=== PATIENT | female | born 1945 | race Hispanic/Latino ===

== ENCOUNTER 2020-05-12 12:52 | Emergency (ER) | payer BC, MEDICARE ==
[2020-05-12] MEDS ORDERED: SODIUM CHLORIDE 0.9% 1000 ML 1,000 ML IV ONE (14:12)
--- NOTE | 2020-05-12 14:28 | Emergency Department Report ---
ED Syncope HPI - General Chief Complaint: Syncope Stated Complaint: PASSED OUT Time Seen by Provider: 05/12/20 13:23 - History of Present Illness Initial Comments: 74-year-old female presents to ED following syncopal episode at her eye doctor's office. Patient states she was recently switched from atenolol to labetalol 3 days ago by her project drilling engineer because her blood pressure was not controlled. Patient states since starting the medication, she has been feeling dizzy and lightheaded. Patient reports that it is written for her to take the medication twice daily, however she is only been taking it once a day because when she checks her blood pressure, systolic BP has been in the 100s over 110s. Today while at the doctor's office, patient remembers feeling nauseated, lightheaded, and then awoke. Paramedics taking care of her. Patient denies any chest pain, shortness of breath. Patient states she was in a chair when she passed out, did not fall or hit her head. Timing/Prior Episodes: single episode today Precipitating Factors: Positive: lightheadedness, nausea Context: sitting Loss of Consciousness: prolonged (minutes) Current Symptoms: back to normal, headache. denies: chest pain, dizziness, lightheadedness - Related Data Allergies/Adverse Reactions: Allergies doxycycline Allergy (Verified 05/12/20 13:26) Swelling Sulfa (Sulfonamide Antibiotics) Allergy (Verified 05/12/20 13:26) Anaphylaxis acetaminophen [From Vicodin] Adverse Reaction (Verified 02/03/14 16:41) jittery amlodipine Adverse Reaction (Verified 05/12/20 13:26) Unknown aspirin [From Percodan] Adverse Reaction (Verified 02/03/14 16:42) jittery azithromycin Adverse Reaction (Verified 05/12/20 13:26) Unknown hydrocodone bitartrate [From Vicodin] Adverse Reaction (Verified 02/03/14 16:41) jittery lidocaine Adverse Reaction (Verified 05/12/20 13:26) Unknown oxycodone HCl [From Percocet] Adverse Reaction (Verified 02/03/14 16:41) jittery oxycodone terephthalate [From Percodan] Adverse Reaction (Verified 02/03/14 16:42) jittery Penicillins Adverse Reaction (Verified 02/03/14 16:41) Swelling prednisone Adverse Reaction (Verified 05/12/20 13:26) Unknown tramadol Adverse Reaction (Verified 02/03/14 16:41) jittery trazodone Adverse Reaction (Verified 05/12/20 13:26) Headache Home Medications: Ambulatory Orders atenoloL [Tenormin] 50 mg PO DAILY 02/03/14 Aspirin EC [Halfprin EC] 81 mg PO QDAY #30 tablet. 02/04/14 Famotidine [Pepcid] 40 mg PO QHS #30 tablet 02/04/14 ED Review of Systems ROS: Stated complaint: PASSED OUT Other details as noted in HPI Comment: All other systems reviewed and negative Respiratory: denies: shortness of breath Cardiovascular: denies: chest pain Gastrointestinal: nausea Neurological: headache ED Past Medical Hx - Past Medical History Previous Medical History?: Yes Hx Hypertension: Yes - Surgical History Past Surgical History?: Yes Hx Cholecystectomy: Yes Additional Surgical History: hysterectomy, Cataract surgery to both eyes - Social History Smoking Status: Never Smoker Substance Use Type: None - Medications Home Medications: Home Medications Medication Instructions Recorded Confirmed Last Taken Type atenoloL [Tenormin] 50 mg PO DAILY 02/03/14 02/03/14 02/03/14 08:00 History 50 mg Aspirin EC [Halfprin EC] 81 mg PO QDAY #30 tablet. 02/04/14 Unknown Rx Famotidine [Pepcid] 40 mg PO QHS #30 tablet 02/04/14 Unknown Rx ED Physical Exam - General Limitations: No Limitations General appearance: alert, in no apparent distress - Head Head exam: Present: atraumatic, normocephalic - Eye Eye exam: Present: normal appearance, EOMI - ENT ENT exam: Present: mucous membranes moist - Neck Neck exam: Present: normal inspection - Respiratory Respiratory exam: Present: normal lung sounds bilaterally. Absent: respiratory distress - Cardiovascular Cardiovascular Exam: Present: regular rate, normal rhythm - GI/Abdominal GI/Abdominal exam: Present: soft. Absent: distended, tenderness - Extremities Exam Extremities exam: Present: normal inspection - Neurological Exam Neurological exam: Present: alert, oriented X3, CN II-XII intact. Absent: motor sensory deficit - Psychiatric Psychiatric exam: Present: normal affect, normal mood - Skin Skin exam: Present: warm, dry, intact, normal color ED Course Vital Signs 05/12/20 05/12/20 05/12/20 13:10 13:15 13:18 Temperature 98.6 F Pulse Rate 76 84 Respiratory 16 Rate Blood Pressure 140/72 O2 Sat by Pulse Oximetry 05/12/20 05/12/20 05/12/20 13:30 13:45 14:00 Temperature Pulse Rate 86 85 Respiratory 15 14 17 Rate Blood Pressure 130/75 130/79 132/76 O2 Sat by Pulse 96 97 97 Oximetry 05/12/20 05/12/20 05/12/20 14:15 14:30 14:46 Temperature Pulse Rate 85 96 H Respiratory 17 15 12 Rate Blood Pressure 131/70 131/70 131/70 O2 Sat by Pulse 96 97 Oximetry 05/12/20 05/12/20 05/12/20 15:00 15:16 15:30 Temperature Pulse Rate Respiratory 18 14 16 Rate Blood Pressure 131/70 114/70 144/75 O2 Sat by Pulse 97 96 Oximetry 05/12/20 05/12/20 05/12/20 16:00 16:30 17:00 Temperature Pulse Rate Respiratory 13 16 16 Rate Blood Pressure 124/74 142/76 123/69 O2 Sat by Pulse 98 96 Oximetry 05/12/20 05/12/20 17:30 18:02 Temperature Pulse Rate Respiratory 12 Rate Blood Pressure 123/69 164/75 O2 Sat by Pulse Oximetry - Consultations Consultation #1: 05/12/20 15:[address] Gonzalez with [facility]. States since labs normal and patient orthostatic, patient should be given IV fluids here in the ED, advise pt to discontinue her labetalol, and have patient follow-up in office. Patient does not require admission at this time. ED Medical Decision Making - Lab Data Result diagrams: 05/12/20 14:36 05/12/20 14:36 - EKG Data -: EKG Interpreted by Ut EKG shows normal: sinus rhythm, axis, intervals, QRS complexes, ST-T waves Rate: normal - EKG Data Interpretation: no acute changes - Radiology Data Radiology results: report reviewed, image reviewed - Medical Decision Making 74-year-old female presents to ED with syncope likely secondary to orthostatic hypotension from new blood pressure medication. Patient had orthostatic vitals here in ED. IV fluids were given. Work-up unremarkable, with negative troponin, EKG showing no ST changes or other abnormalities. Chest x-ray normal. Patient feeling better following IV fluid administration. Will discharge home at this time. Patient advised to discontinue her labetalol until further instructed by her project drilling engineer. Return precautions given. - Differential Diagnosis Orthostatic syncope, medication side effect, arrhythmia, dehydration Critical care attestation.: If time is entered above; I have spent that time in minutes in the direct care of this critically ill patient, excluding procedure time. ED Disposition Clinical Impression: Orthostatic hypotension, Medication adverse effect, Syncope Disposition: OP ADMIT IP TO THIS HOSP Is pt being admited?: No Condition: Stable Instructions: Syncope (ED) Referrals: BAILEE KELSEY MD [Staff Physician] - [facility]
--- NOTE | 2020-05-12 15:09 | XRay Report ---
CHEST 1 VIEW INDICATION / CLINICAL INFORMATION: syncope. FINDINGS: SUPPORT DEVICES: None. HEART / MEDIASTINUM: No significant abnormality. LUNGS / PLEURA: No significant pulmonary or pleural abnormality. No pneumothorax. ADDITIONAL FINDINGS: No significant additional findings. IMPRESSION: 1. No acute findings. Signer Name: Diego Orourke MD Signed: 05/12/2020 3:05 PM Workstation Name: [id number]
[2020-05-12 15:10] LABS: BUN/Creatinine Ratio 19; Blood Urea Nitrogen 15 mg/dL (7-17); Calcium 9.4 mg/dL (8.4-10.2); Hemolysis Index 5
[2020-05-12 15:25] LABS: Basophils % (Auto) 0.3 % (0.0-1.8); Eosinophils % (Auto) 0.2 % (0.0-4.3); Hematocrit 38.9 % (30.3-42.9); Hemoglobin 12.6 gm/dl (10.1-14.3); Lymphocytes # (Auto) 1.5 K/mm3 (1.2-5.4); Lymphocytes % (Auto) 13.6 % (13.4-35.0); Mean Corpuscular HGB Conc 33 % (30-34); Mean Corpuscular Volume 77 fl (79-97); Monocytes # (Auto) 0.6 K/mm3 (0.0-0.8); Monocytes % (Auto) 5.6 % (0.0-7.3); Platelet Count 338 K/mm3 (140-440); Red Blood Count 5.03 M/mm3 (3.65-5.03); Red Cell Distribution Width 14.4 % (13.2-15.2)
[2020-05-12 15:38] LABS: INR 1.05 (0.87-1.13)
[2020-05-12 15:39] LABS: Partial Thromboplastin Time 28.2 Sec. (24.2-36.6)
[2020-05-12 18:22] VITALS: BP 164/75
== END 2020-05-12 18:39 | disposition admitted as inpatient to this hospital (09) ==
LOC: ED 12:52
DX: R55 Syncope and collapse (principal); T50.905A Adverse effect of unspecified drugs, medicaments and biological substances, initial encounter; I10 Essential (primary) hypertension; Z90.49 Acquired absence of other specified parts of digestive tract; Z98.890 Other specified postprocedural states; Z90.710 Acquired absence of both cervix and uterus; Z79.899 Other long term (current) drug therapy; Z88.0 Allergy status to penicillin; Z88.1 Allergy status to other antibiotic agents; Z88.2 Allergy status to sulfonamides; Z88.8 Allergy status to other drugs, medicaments and biological substances; Y92.89 Other specified places as the place of occurrence of the external cause
CPT/HCPCS: 36415; 71045; 80048; 84484; 85025; 85610; 85730; 93005; 96360; 99284; J7030